=== PATIENT | male | born 1955 | race Hispanic/Latino ===

== ENCOUNTER 2024-09-15 06:18 | Observation (INO) | payer OTHER ==
[2024-09-13 12:29] LABS: BASOPHILS # (AUTO) 0.03 K/uL (0.00-0.20); BASOPHILS % (AUTO) 0.6 % (0.0-5.0); EOSINOPHILS # (AUTO) 0.09 K/uL (0.00-0.70); EOSINOPHILS % (AUTO) 1.7 % (0.0-8.0); HEMATOCRIT 41.7 % (42-54); IMMATURE GRANULOCYTE ABSOLUTE 0.01 K/uL (0-1); LYMPHOCYTES # (AUTO) 1.4 K/uL (1.0-4.8); LYMPHOCYTES % (AUTO) 26.4 % (21.0-51.0); MEAN CORPUSCULAR HEMOGLOBIN 30.2 pg (27.0-33.0); MEAN CORPUSCULAR HGB CONC 34.1 g/dL (32.0-36.0); MEAN CORPUSCULAR VOLUME 88.7 fL (79-99); MONOCYTES # (AUTO) 0.4 K/uL (0.1-1.0); MONOCYTES % (AUTO) 7.1 % (3.0-13.0); NEUTROPHILS # (AUTO) 3.3 K/uL (1.8-7.7); PLATELET COUNT (AUTO) 170 K/uL (130-400); RED CELL DISTRIBUTION WIDTH 13.2 % (11.0-15.5); WHITE BLOOD COUNT (AUTO) 5.2 K/uL (4.8-10.8)
[2024-09-13 12:40] VITALS: BP 142/76; PULSE 65; RESP 18; TEMP 97.7
[2024-09-13 12:44] LABS: INR 0.98 (0.85-1.15); PROTHROMBIN TIME 10.4 SEC (9.6-11.6)
[2024-09-13 12:45] LABS: CREATININE 0.9 mg/dL (0.5-1.3); PARTIAL THROMBOPLASTIN TIME 26.6 SEC (26.3-35.5); POTASSIUM 4.4 mmol/L (3.5-5.1)
--- NOTE | 2024-09-13 13:00 | NUR ---
IS INITIAL IS INITIAL TEACHING DONE BY RT SUZANNE DURING PRE-OP. PATIENT INSTRUCTED TO BRING ON DAY OF SURGERY.
--- NOTE | 2024-09-14 08:59 | EKG ---
[facility] Test Date: 2024-09-13 Test Time: 12:23:50 Pat Name: THOMAS GREEN Department: [facility] Room: [facility] Gender: M Rn Case Mgr: [id number] : 1955 Requested By: VIDYA CMCANN Order Number: [id number] Reading MD: Virgilio Brock Measurements Intervals [place] Rate: 64 P: 17 ND: 152 QRS: -4 QRSD: 74 T: 15 QT: 406 QTc: 418 Interpretive Statements Normal sinus rhythm No previous ECG available for comparison Electronically Signed On 09-15-2024 10:14:31 CDT by Virgilio Brock Please click the below link to view image of tracing.
--- NOTE | 2024-09-14 09:30 | NUR ---
EKG REPORTED TO DR. ACEVES. REVIEWED, OK TO PROCEED.
--- NOTE | 2024-09-14 17:26 | NUR ---
DISCHARGE PLANNING This CM called patient, but call was dropped. Then called , Merly Guajardo ph: [phone]. Per Merly, patient and are new to [place]. [facility] was recommended to them and they would like to proceed with referral. Telephone Consent for HOWIE/CL obtained from . Securely emailed face sheet to Key Arguello as a heads up of upcoming referral. Post-Operatively, CM to fax referral to [facility]. [facility] pending. Addendum: 09/14/24 at 1729 by LENNIE HAWKINS Amended: Links added.
[~2024-09-15] VITALS: Ht 170.2 cm; Wt 92.5 kg
[2024-09-15] VITALS (24 sets, daily range): BP systolic 106–145; BP diastolic 58–85; PULSE 62–76; RESP 13–20; TEMP 97.6–98.3; O2SAT 97
[~2024-09-15 06:18] MED LIST: HYDR-4060 PO
[2024-09-15] MEDS: LACTATED RINGERS 1000ML 1,000 ML IV ONE (06:43)
[2024-09-15] MEDS ORDERED: LIDOCAINE PF 100MG/5ML (2%) SYRINGE 5ML ONE (07:32)
[2024-09-15] MEDS ORDERED: phenylEPHRINE HCL 10 MG/ML 1ML VIAL IV ONE (07:32)
[2024-09-15] MEDS ORDERED: dexaMETHasone SOD PHOSPHATE 4 MG/ML 1ML VIAL ONE (07:32)
[2024-09-15] MEDS ORDERED: ondanSETRON 4MG INJ ONE (07:32)
[2024-09-15] MEDS ORDERED: MIDAZOLAM HCL 1 MG/ML 2ML VIAL ONE (07:33)
[2024-09-15] MEDS ORDERED: GLYCOPYRROLATE 0.2 MG/ML 5 ML VIAL ONE (07:33)
[2024-09-15] MEDS ORDERED: proPOFol 10 MG/ML 20ML VIAL IV ONE (07:33)
[2024-09-15] MEDS ORDERED: FENTanyl CITRate PF 50 MCG/1 ML 2ML VIAL ONE ×2 (07:34→10:38)
[2024-09-15] MEDS ORDERED: NEOSTIGMINE METHYLSULFATE 1MG/ML IV ONE (07:34)
[2024-09-15] MEDS ORDERED: rocuRONium bROMide 10MG/1ML 5ML VL ONE (07:34)
[2024-09-15] MEDS ORDERED: ROPivacaine 0.5% 5MG/ML 30ML ONE (07:37)
[2024-09-15] MEDS: ceFAZolin SODIUM 2 GM VIAL ONE (08:39)
[2024-09-15] MEDS: TRANEXAMIC ACID 1000MG/10ML ONE (09:01)
[2024-09-15] MEDS ORDERED: ondanSETRON 4MG INJ IVP PRN (09:30)
[2024-09-15] MEDS ORDERED: PoTASSium chloRIDE 20MEQ ER 20 MEQ ERTAB PO PRN (09:30)
[2024-09-15] MEDS: ketOROlac 15MG/ML VIAL (15MG/ML) IV SCH (09:30)
[2024-09-15] MEDS ORDERED: CALCIUM CARB 500MG PO PRN (09:30)
[2024-09-15] MEDS ORDERED: traMADol HCL 50 MG TABLET PO PRN (09:30)
[2024-09-15] MEDS ORDERED: PoTASSium chloRIDE 20MEQ/100ML 100 ML IV PRN (09:30)
[2024-09-15] MEDS ORDERED: PoTASSium chl 10% ELIXIR 20MEQ 20 MEQ/15 ML UDCUP PO PRN (09:30)
[2024-09-15] MEDS ORDERED: FERROUS FUMARATE 324 MG TABLET PO PRN (09:30)
[2024-09-15] MEDS ORDERED: HYDROcodone/APAP 5/325 1 TAB TABLET PO PRN (09:30)
[2024-09-15] MEDS: TRANEXAMIC ACID 1000MG/10ML IV ONE ×2 (10:30)
[2024-09-15] MEDS: FENTanyl CITRate PF 50 MCG/1 ML 2ML VIAL ONE (11:35)
[2024-09-15] MEDS: ketOROlac 15MG/ML VIAL (15MG/ML) ONE (11:46)
--- NOTE | 2024-09-15 12:16 | HMCIMG ---
HIP BILAT 2VW HISTORY: Status post hip surgery COMPARISON: None TECHNIQUE: 3 images of bilateral hips were obtained. FINDINGS: Total right hip replacement changes are seen. Left hip joint space narrowing is seen. There is no acute displaced fracture or dislocation. Degenerative changes are seen. IMPRESSION: 1. Findings as described above.
--- NOTE | 2024-09-15 12:31 | HMCIMG ---
HIP UNILAT 4VW RIGHT REASON: ORIF RIGHT PEDRO LUIS HIP SX,. COMPARISON: None TECHNIQUE: Fluoroscopic images were obtained. FINDINGS: Please see procedure report by referring physician. IMPRESSION: Intraoperative films.
[2024-09-15] MEDS: CYCLOBENZAPRINE HCL 10 MG TABLET PO PRN (12:32)
[2024-09-15] MEDS: HYDROcodone/APAP 5/325 1 TAB TABLET PO PRN (12:33)
[2024-09-15] MEDS: HYDROcodone/APAP 5/325 1 TAB TABLET ONE (12:40)
[2024-09-15] MEDS: CYCLOBENZAPRINE HCL 10 MG TABLET ONE (12:40)
--- NOTE | 2024-09-15 13:24 | DS ---
Discharge Summary Hospital Course Summary: The patient was admitted to the hospital postoperatively on 09/15/2024 after undergoing right total hip arthroplasty. They did well with routine postoperative pain control. They worked well with physical therapy. They developed some acute blood loss anemia but remained asymptomatic. The hospital course was otherwise uncomplicated. They were subsequently able to be discharged on postoperative day [] once discharge arrangements were made with [facility]. Demurrage Agent(s): None Procedure(s): Right total hip arthroplasty, 09/15/2024 Assessment/Plan: ASSESSMENT: Status post right total hip arthroplasty Acute blood loss anemia PLAN: See discharge instructions Discharge Instructions: Begin working with physical therapy at the facility. Remembered do not flex the hip more than 90 and do not cross midline at the knees or ankles for the 1st six weeks. If you are side sleeper place a pillow between the knees and ankles to prevent the legs from crossing. Dressing may be removed 09/17/24 and left open to air. Showers ok allowing soap and water to run over the wound. Pat dry. Do not submerge wound in tub/pool. Do not apply ointments. Do not apply Betadine. Do not apply peroxide. Ice packs to decrease pain/swelling. Prescriptions have been sent to the pharmacy: *Acton 5/325mg 1-2 tab every 6 hours as needed for severe pain. (please call for refills) Cyclobenzaprine 5mg 1 tab every 8 hours as needed for muscle spasm pain. Gabapentin 100mg 1 tab every 8 hours (may discontinue if drowsy). Colace 100mg 1 tab orally twice a day as needed for constipation. Aspirin 325mg for 30 days to prevent blood clots. Call for a follow-up appointment in 2-3 weeks at [facility]. Home Medications: Reported Medications Hydrocodone/Acetaminophen (Hydrocodon-Acetaminophen 5-325) 5 Mg-325 Mg Tablet, 1 TAB PO Q6HPRN PRN for pain for 5 Days, #10 TAB 0 Refills 09/13/24 VIDYA MCCANN MD Sep 15, 2024 13:24
[2024-09-15] MEDS: GABApentin 100 MG CAPSULE ONE (13:27)
[2024-09-15] MEDS: GABApentin 100 MG CAPSULE PO SCH (13:27)
--- NOTE | 2024-09-15 13:28 | OP ---
Operative Note: DATE OF PROCEDURE: 09/15/24 SURGEON: VIDYA MCCANN MD BRONZER: Demetrius Morales and Hailee Ornelas ANESTHESIA: General and fascia iliaca block ANESTHESIOLOGIST/HOSPITAL EDUCATOR: Noe Knott PREOPERATIVE DIAGNOSIS: Right hip avascular necrosis POSTOPERATIVE DIAGNOSIS: Right hip avascular necrosis PROCEDURE: Right total hip arthroplasty ESTIMATED BLOOD LOSS: 200 cc INDICATIONS: 69-year-old male with right hip osteoarthritis from right hip avascular necrosis failing conservative management. After discussion of the risks, benefits, and alternatives, the patient voluntarily agreed to undergo the aforementioned procedure. IMPLANTS: Noyola and Nephew 56 mm R3 acetabular component with 6.5 mm screws x2, +0/28/44/56 dual mobility liner insert and femoral head, size 9 standard offset anthology stem DESCRIPTION OF PROCEDURE: Patient was properly identified in the preoperative holding area. Surgical site marking was verified and surgery consent reviewed. The patient was then taken to the operating room and placed in supine position on the OR table. After induction of general anesthesia, preoperative antibiotics were given. The patient was then transitioned in the lateral decubitus position with the right side up. All bony prominences were well-padded. Right lower extremity was then prepped and draped in the usual sterile fashion. Surgical time out was done verifying correct surgery, side, site, and location to be performed. We then began the procedure by making approximately 15 cm long incision centered over the greater trochanter. Here we came sharply through skin down to the fascia. Hemostasis was then achieved using Bovie electrocautery. We then incised fascia in line with the skin incision and finger split the tensor muscle proximally. We then placed our Charnley retractor. At this point we identified the vastus ridge and began elevating the full-thickness soft tissue flap off of the vastus ridge, splitting the vastus lateralis and gluteus muscles as nec essary. We then proceeded to externally rotate the femur while making this flap. We resected part of the anterior capsule. The femoral head and neck was then delivered into view. We then dislocated the hip and performed a femoral neck osteotomy approximately half fingerbreadth proximal to the lesser trochanter. We then placed our retractors around the superior and anterior por tion of the acetabulum and began to remove the labrum circumferentially. We then began reaming the acetabulum where we reamed up to a size 55 ensuring appropriate anteversion and abduction. We then proceeded to trial with the size 55 acetabular component and this appeared to sit well. We opened our size 56 acetabular component and after irrigating out the wound malleted this into place. It appeared to have good press-fit however we elected to place two of the 6.5 mm screws as well. We drilled and filled the screws in standard fashion in the posterior superior portion of the cup. The wound was thoroughly irrigated out further and we placed the acetabular dual mobility liner and impacted this in place in standard fashion. We then proceeded to reposition our retractors to elevate the proximal femur out of the wound. We then used the box chisel and canal finder to began preparing the femoral side and sequentially broached up to the aforementioned size stem. Once we felt we had good fit, fill, and control of the femur with the stem in place we then used our trial head component and reduce the hip. Upon reduction, we had appropriate soft tissue tensioning, limb length and stable range of motion. We therefore dislocated the hip once more removed our trial components thoroughly irrigated the out the wound and placed our final components in standard fashion. The hip was then reduced with the final components in place. It was found to be stable through range of motion with appropriate soft tissue tensioning and appropriate limb length. At this point we placed a bump under the knee and the foot on the male with a stack of towels to allow for internal rotation. We repaired the abductors back to the greater trochanter using #5 Ethibond. We then repaired the rent in the vastus lateralis and gluteus muscles using #1 Vicryl in a running fashion. We removed our Charnley retractor and began to repair the IT band using #1 Vicryl in interrupted [id number] fashion. At this point we began to close her subcutaneous tissue using 2-0 Vicryl. Running 3-0 Monocryl in subcuticular fashion with Dermabond placed over this for the skin. Island barrier dressing was then applied. Patient was returned to supine position, awakened from anesthesia, and taken to the recovery room in stable condition. VIDYA MCCANN MD Sep 15, 2024 13:28
--- NOTE | 2024-09-15 13:30 | NUR ---
Educated patient to request pain meds with breakfast and dinner to allow plenty of time for PO meds to take effect for PT treatments. Patient voiced understanding. Educated patient on THR precautions with handout to be given once patient is assigned a room. Patient is requesting post-hospital rehab. PT team to follow. Addendum: 09/15/24 at 1511 by MUKUL NICK PT Amended: Links added.
--- NOTE | 2024-09-15 15:20 | NUR ---
REPORT PASSED TO ME BY SALVATORE REDMOND. PATIENT HAS ALREADY RECOVERED IN PACU BEFORE ARRIVAL ON THE UNIT. SCDS PLACED ON PATIENT. IV FLUIDS HOOKED UP AND ORIENTED PATIENT TO ROOM. I.S. ALREADY IN ROOM FOR PATIENT. CALLED RESPIRATORY TO RE-EDUCATE PATIENT ON USE.
--- NOTE | 2024-09-15 15:20 | NUR ---
Pt is received with report from recovery room. This patient is alert and in no distress. $ hours of post op vitals are completed in recovery room. SCDs are in place to both lower extremities. Pedal pulses are present bilaterally, pt is able to move both feet and sensation is intact. As per the recovery room report the patient has already ambulated with PT. The pt is oriented to the room ans the use of the call covarrubias. The call covarrubias is left in reach and the bed in a lopw position .
[2024-09-15] MEDS: 0.9%NACL 1000ML 1,000 ML IV SCH (15:34)
[2024-09-15] MEDS: CLINDAMYCIN IVPB 900MG/50ML 50 ML IV SCH (17:10)
[2024-09-15] MEDS: doCUSate SODIUM 100 MG CAP PO SCH (19:57)
[2024-09-16] VITALS: BP 113/74; PULSE 80; RESP 19; TEMP 97.8
[2024-09-16 04:00] VITALS: BP 121/71; PULSE 75; RESP 18; TEMP 97.6
[2024-09-16 04:37] LABS: MEAN CORPUSCULAR HEMOGLOBIN 30.6 pg (27.0-33.0); MEAN CORPUSCULAR HGB CONC 34.5 g/dL (32.0-36.0); MEAN CORPUSCULAR VOLUME 88.6 fL (79-99); RED BLOOD CELL COUNT(AUTO) 3.5 MIL/uL (4.50-6.20); RED CELL DISTRIBUTION WIDTH 13.2 % (11.0-15.5); WHITE BLOOD COUNT (AUTO) 9.3 K/uL (4.8-10.8)
[2024-09-16 04:53] LABS: CREATININE 0.8 mg/dL (0.5-1.3)
[2024-09-16] MEDS: HYDROcodone/APAP 5/325 1 TAB TABLET PO PRN (06:39)
[2024-09-16] MEDS: ASPIRIN 325MG EC TAB PO SCH (07:54)
[2024-09-16] MEDS: polyETHYLene GLYCol 3350 17 GM POWD.PACK PO SCH (07:54)
[2024-09-16 08:00] VITALS: BP 123/53; PULSE 76; RESP 19; TEMP 97.7; O2SAT 95
--- NOTE | 2024-09-16 08:02 | PN ---
Ortho postop day one. This morning the patient is awake alert and oriented he is seated in a chair at the bedside. Reporting adequate pain control. Vital signs have been stable. Afebrile. He is voiding on his own. He is passing gas. Laboratory results reviewed. Noted to have a drop in hemoglobin and hematocrit as expected after total hip arthroplasty patient is currently asymptomatic. Operative findings discussed with the patient. The dressing is intact. Ice is present to operative extremity. Gastrocnemius a soft nontender. Negative Homans. Bilateral SCD sleeves present. Ambulated with therapy yesterday and is pending further physical therapy. Anticipated discharge goal is skilled nurse facility. Assessment: Status post right total hip arthroplasty. Asymptomatic acute postoperative blood loss anemia. Plan: Continue with Dr. Molina's total hip arthroplasty protocol and discharge planning. Asymptomatic acute postoperative blood loss anemia addressed with the protocol as necessary. Vitals/Labs Vital Signs Date Time Temp Pulse Resp B/P (MAP) Pulse Ox O2 Delivery O2 Flow Rate FiO2 09/16/24 04:00 97.5 75 18 121/71 96 Room Air 09/15/24 20:00 2.0 09/15/24 20:00 21 Laboratory Tests 09/16/24 04:12 Medications Current Medications Cefazolin Sodium 2 gm STK-MED ONCE .ROUTE Last administered on 09/15/24at 08:39; Start 09/15/24 at 06:43; Stop 09/15/24 at 06:44; Status DC Lactated Ringer's 1,000 ml @ As Directed STK-MED ONCE IV; Start 09/15/24 at 06:43; Stop 09/15/24 at 06:44; Status DC Lidocaine HCl 100 mg STK-MED ONCE .ROUTE; Start 09/15/24 at 07:32; Stop 09/15/24 at 07:32; Status DC Dexamethasone Sodium Phosphate 4 mg STK-MED ONCE .ROUTE; Start 09/15/24 at 07:32; Stop 09/15/24 at 07:32; Status DC Phenylephrine HCl 10 mg STK-MED ONCE IV; Start 09/15/24 at 07:32; Stop 09/15/24 at 07:32; Status DC Ondansetron HCl 4 mg STK-MED ONCE .ROUTE; Start 09/15/24 at 07:32; Stop 09/15/24 at 07:32; Status DC Propofol 200 mg STK-MED ONCE IV; Start 09/15/24 at 07:33; Stop 09/15/24 at 07:34; Status DC Glycopyrrolate 1 mg STK-MED ONCE .ROUTE; Start 09/15/24 at 07:33; Stop 09/15/24 at 07:34; Status DC Midazolam HCl 2 mg STK-MED ONCE .ROUTE; Start 09/15/24 at 07:33; Stop 09/15/24 at 07:34; Status DC Neostigmine Methylsulfate 10 mg STK-MED ONCE IV; Start 09/15/24 at 07:34; Stop 09/15/24 at 07:34; Status DC Rocuronium [place] 50 mg STK-MED ONCE .ROUTE; Start 09/15/24 at 07:34; Stop 09/15/24 at 07:34; Status DC Fentanyl Citrate 100 mcg STK-MED ONCE .ROUTE; Start 09/15/24 at 07:34; Stop 09/15/24 at 07:34; Status DC Ropivacaine 150 mg STK-MED ONCE .ROUTE; Start 09/15/24 at 07:37; Stop 09/15/24 at 07:38; Status DC Tranexamic Acid 1,000 mg STK-MED ONCE .ROUTE Last administered on 09/15/24at 09:01; Start 09/15/24 at 08:44; Stop 09/15/24 at 08:45; Status DC Sodium Chloride 1,000 ml @ 100 mls/hr Q10H IV Last administered on 09/15/24at 17:13; Start 09/15/24 at 09:30; Stop 09/16/24 at 09:29 Polyethylene Glycol 17 gm DAILY PO Last administered on 09/16/24at 07:54; Start 09/16/24 at 09:00; Stop 10/16/24 at 08:59 Bisacodyl 10 mg DAILY PRN RC; Start 09/18/24 at 09:30; Stop 10/18/24 at 09:29 Ketorolac Tromethamine 15 mg Q6H PRN IV; Start 09/16/24 at 09:30; Stop 09/21/24 at 09:29 Ferrous Fumarate 324 mg DAILY PRN PO; Start 09/15/24 at 09:30; Stop 10/15/24 at 09:29 Calcium Carbonate 500 mg Q12H PRN PO; Start 09/15/24 at 09:30; Stop 10/15/24 at 09:29 Clindamycin HCl/ Dextrose 50 ml @ 50 mls/hr Q8H IV Last administered on 09/15/24at 22:21; Start 09/15/24 at 14:30; Stop 09/15/24 at 23:29; Status DC Ondansetron HCl 4 mg Q6H PRN IVP; Start 09/15/24 at 09:30; Stop 10/15/24 at 09:29 Gabapentin 100 mg TID PO Last administered on 09/16/24at 07:54; Start 09/15/24 at 14:00; Stop 10/15/24 at 13:59 Cyclobenzaprine HCl 5 mg Q8H PRN PO Last administered on 09/15/24at 12:32; Start 09/15/24 at 09:30; Stop 10/15/24 at 09:29 Docusate Sodium 100 mg BID PO Last administered on 09/16/24at 07:54; Start 09/15/24 at 21:00; Stop 10/15/24 at 20:59 Ketorolac Tromethamine 15 mg Q8H IV Last administered on 09/16/24at 01:59; Start 09/15/24 at 09:30; Stop 09/16/24 at 01:31; Status DC Aspirin 325 mg DAILY PO Last administered on 09/16/24at 07:54; Start 09/16/24 at 09:00; Stop 10/16/24 at 08:59 Potassium Chloride 100 ml @ 100 mls/hr AD PRN IV; Start 09/15/24 at 09:30; Stop 10/15/24 at 09:29 Potassium Chloride 20 meq AD PRN PO; Start 09/15/24 at 09:30; Stop 10/15/24 at 09:29 Potassium Chloride 20 meq AD PRN PO; Start 09/15/24 at 09:30; Stop 10/15/24 at 09:29 Tramadol HCl 50 mg Q6H PRN PO; Start 09/15/24 at 09:30; Stop 09/20/24 at 09:29 Acetaminophen/ Hydrocodone Bitart Q4H PRN PO; Start 09/15/24 at 09:30; Stop 09/15/24 at 09:41; Status DC Acetaminophen/ Hydrocodone Bitart 1 tab Q6H PRN PO Last administered on 09/15/24at 12:33; Start 09/15/24 at 10:00; Stop 09/20/24 at 09:59 Acetaminophen/ Hydrocodone Bitart 2 tab Q6H PRN PO Last administered on 09/16/24at 06:39; Start 09/15/24 at 10:00; Stop 09/20/24 at 09:59 Tranexamic Acid 1,000 mg STK-MED ONCE IV; Start 09/15/24 at 00:00; Stop 09/15/24 at 00:01; Status Cancel Tranexamic Acid 1,000 mg STK-MED ONCE IV Last administered on 09/15/24at 10:30; Start 09/15/24 at 10:30; Stop 09/15/24 at 10:30; Status DC Fentanyl Citrate 100 mcg STK-MED ONCE .ROUTE; Start 09/15/24 at 10:38; Stop 09/15/24 at 10:38; Status DC Fentanyl Citrate 100 mcg STK-MED ONCE .ROUTE Last administered on 09/15/24at 11:35; Start 09/15/24 at 11:30; Stop 09/15/24 at 11:30; Status DC Ketorolac Tromethamine 15 mg STK-MED ONCE .ROUTE Last administered on 09/15/24at 11:46; Start 09/15/24 at 11:42; Stop 09/15/24 at 11:43; Status DC Acetaminophen/ Hydrocodone Bitart 1 tab STK-MED ONCE .ROUTE; Start 09/15/24 at 12:28; Stop 09/15/24 at 12:29; Status DC Cyclobenzaprine HCl 10 mg STK-MED ONCE .ROUTE; Start 09/15/24 at 12:28; Stop 09/15/24 at 12:29; Status DC Gabapentin 100 mg STK-MED ONCE .ROUTE; Start 09/15/24 at 13:25; Stop 09/15/24 at 13:25; Status DC KAI ADAIR NP Sep 16, 2024 08:02
[2024-09-16] MEDS: ketOROlac 15MG/ML VIAL (15MG/ML) IV PRN (09:09)
--- NOTE | 2024-09-16 11:51 | NUR ---
[facility] CM MET WITH PT THIS MORNING, INITIAL ASSESSMENT DONE. PATIENT IS INDEPENDENT PRIOR TO SURGERY, LIVES AT HOME WITH HIS AND 2 ADULT SONS. PATIENT HAS A CANE, WALKER, SHOWER CHAIR. DENIES ANY OTHER EQUIPMENT/SERVICES. PREVIOUS CM ASSIGNED OBTAINED CONSENT [facility]IE FOR [facility] YESTERDAY EVENING AND PACKET WAS SENT. CM SPOKE TO RADHA VERIFIED RECEIVED REFERRAL AND CURRENTLY WORKING ON AUTH. PER RADHA W/[facility], DC [employer] SERVICE INSTRUCTOR SENT [facility]. PT PENDING AUTH AT THIS TIME. [facility] SNF ONCE APPROVED. CM TO CONTINUE TO FOLLOW UP. Addendum: 09/16/24 at 1154 by NARENDRA FRASER LVN Amended: Links added.
[2024-09-16 12:00] VITALS: BP 123/59; PULSE 69; RESP 19; TEMP 97.7
[2024-09-16 16:00] VITALS: BP 137/71; PULSE 60; RESP 19; TEMP 97.6
[2024-09-16 20:00] VITALS: BP 120/68; PULSE 96; RESP 20; TEMP 98
[2024-09-17] VITALS: BP 150/73; PULSE 86; RESP 19; TEMP 98.9
[2024-09-17 07:50] VITALS: O2SAT 93
[2024-09-17 08:00] VITALS: BP 127/71; PULSE 87; RESP 19; TEMP 98.1
[2024-09-17] MEDS ORDERED: HYDR-4060 PO (09:05)
[2024-09-17] MEDS ORDERED: GABA100C PO (09:05)
[2024-09-17] MEDS ORDERED: ASPI-891 PO (09:05)
[2024-09-17] MEDS ORDERED: CYCL-309 PO (09:05)
[2024-09-17] MEDS ORDERED: DOCU-116 PO (09:05)
--- NOTE | 2024-09-17 09:09 | PN ---
Ortho postop day two The patient reports that he is doing well. States he was able to shower this morning. Does report some pain that this is controlled. States that numbness in his thigh is resolving. Voiding on his own. Vital signs stable, afebrile No acute distress, alert and oriented x3 Nonlabored breathing Right lower extremity -bandage removed -incision clean dry and intact -distally neurovascularly intact -mild edema distally, large varicosities -calf soft nontender Ambulating 40 ft with physical therapy Discharge planning is for [facility] Postop day two status post right total hip arthroplasty Acute blood loss anemia -continue with my routine postoperative protocol -stable for discharge to [facility] once approval obtained. Vitals/Labs Vital Signs Date Time Temp Pulse Resp B/P (MAP) Pulse Ox O2 Delivery O2 Flow Rate FiO2 09/17/24 08:00 98.1 87 19 127/71 93 Room Air 09/16/24 20:00 0 21 Medications Current Medications Cefazolin Sodium 2 gm STK-MED ONCE .ROUTE Last administered on 09/15/24at 08:39; Start 09/15/24 at 06:43; Stop 09/15/24 at 06:44; Status DC Lactated Ringer's 1,000 ml @ As Directed STK-MED ONCE IV; Start 09/15/24 at 06:43; Stop 09/15/24 at 06:44; Status DC Lidocaine HCl 100 mg STK-MED ONCE .ROUTE; Start 09/15/24 at 07:32; Stop 09/15/24 at 07:32; Status DC Dexamethasone Sodium Phosphate 4 mg STK-MED ONCE .ROUTE; Start 09/15/24 at 07:32; Stop 09/15/24 at 07:32; Status DC Phenylephrine HCl 10 mg STK-MED ONCE IV; Start 09/15/24 at 07:32; Stop 09/15/24 at 07:32; Status DC Ondansetron HCl 4 mg STK-MED ONCE .ROUTE; Start 09/15/24 at 07:32; Stop 09/15/24 at 07:32; Status DC Propofol 200 mg STK-MED ONCE IV; Start 09/15/24 at 07:33; Stop 09/15/24 at 07:34; Status DC Glycopyrrolate 1 mg STK-MED ONCE .ROUTE; Start 09/15/24 at 07:33; Stop 09/15/24 at 07:34; Status DC Midazolam HCl 2 mg STK-MED ONCE .ROUTE; Start 09/15/24 at 07:33; Stop 09/15/24 at 07:34; Status DC Neostigmine Methylsulfate 10 mg STK-MED ONCE IV; Start 09/15/24 at 07:34; Stop 09/15/24 at 07:34; Status DC Rocuronium [place] 50 mg STK-MED ONCE .ROUTE; Start 09/15/24 at 07:34; Stop 09/15/24 at 07:34; Status DC Fentanyl Citrate 100 mcg STK-MED ONCE .ROUTE; Start 09/15/24 at 07:34; Stop 09/15/24 at 07:34; Status DC Ropivacaine 150 mg STK-MED ONCE .ROUTE; Start 09/15/24 at 07:37; Stop 09/15/24 at 07:38; Status DC Tranexamic Acid 1,000 mg STK-MED ONCE .ROUTE Last administered on 09/15/24at 09:01; Start 09/15/24 at 08:44; Stop 09/15/24 at 08:45; Status DC Sodium Chloride 1,000 ml @ 100 mls/hr Q10H IV Last administered on 09/15/24at 17:13; Start 09/15/24 at 09:30; Stop 09/16/24 at 09:29; Status DC Polyethylene Glycol 17 gm DAILY PO Last administered on 09/17/24at 07:50; Start 09/16/24 at 09:00; Stop 10/16/24 at 08:59 Bisacodyl 10 mg DAILY PRN RC; Start 09/18/24 at 09:30; Stop 10/18/24 at 09:29 Ketorolac Tromethamine 15 mg Q6H PRN IV Last administered on 09/16/24at 14:57; Start 09/16/24 at 09:30; Stop 09/21/24 at 09:29 Ferrous Fumarate 324 mg DAILY PRN PO; Start 09/15/24 at 09:30; Stop 10/15/24 at 09:29 Calcium Carbonate 500 mg Q12H PRN PO; Start 09/15/24 at 09:30; Stop 10/15/24 at 09:29 Clindamycin HCl/ Dextrose 50 ml @ 50 mls/hr Q8H IV Last administered on 09/15/24at 22:21; Start 09/15/24 at 14:30; Stop 09/15/24 at 23:29; Status DC Ondansetron HCl 4 mg Q6H PRN IVP; Start 09/15/24 at 09:30; Stop 10/15/24 at 09:29 Gabapentin 100 mg TID PO Last administered on 09/17/24at 07:50; Start 09/15/24 at 14:00; Stop 10/15/24 at 13:59 Cyclobenzaprine HCl 5 mg Q8H PRN PO Last administered on 09/15/24at 12:32; Start 09/15/24 at 09:30; Stop 10/15/24 at 09:29 Docusate Sodium 100 mg BID PO Last administered on 09/17/24at 07:50; Start 09/15/24 at 21:00; Stop 10/15/24 at 20:59 Ketorolac Tromethamine 15 mg Q8H IV Last administered on 09/16/24at 01:59; Start 09/15/24 at 09:30; Stop 09/16/24 at 01:31; Status DC Aspirin 325 mg DAILY PO Last administered on 09/17/24at 07:50; Start 09/16/24 at 09:00; Stop 10/16/24 at 08:59 Potassium Chloride 100 ml @ 100 mls/hr AD PRN IV; Start 09/15/24 at 09:30; Stop 10/15/24 at 09:29 Potassium Chloride 20 meq AD PRN PO; Start 09/15/24 at 09:30; Stop 10/15/24 at 09:29 Potassium Chloride 20 meq AD PRN PO; Start 09/15/24 at 09:30; Stop 10/15/24 at 09:29 Tramadol HCl 50 mg Q6H PRN PO; Start 09/15/24 at 09:30; Stop 09/20/24 at 09:29 Acetaminophen/ Hydrocodone Bitart Q4H PRN PO; Start 09/15/24 at 09:30; Stop 09/15/24 at 09:41; Status DC Acetaminophen/ Hydrocodone Bitart 1 tab Q6H PRN PO Last administered on 09/15/24at 12:33; Start 09/15/24 at 10:00; Stop 09/20/24 at 09:59 Acetaminophen/ Hydrocodone Bitart 2 tab Q6H PRN PO Last administered on 09/17/24at 06:37; Start 09/15/24 at 10:00; Stop 09/20/24 at 09:59 Tranexamic Acid 1,000 mg STK-MED ONCE IV; Start 09/15/24 at 00:00; Stop 09/15/24 at 00:01; Status Cancel Tranexamic Acid 1,000 mg STK-MED ONCE IV Last administered on 09/15/24at 10:30; Start 09/15/24 at 10:30; Stop 09/15/24 at 10:30; Status DC Fentanyl Citrate 100 mcg STK-MED ONCE .ROUTE; Start 09/15/24 at 10:38; Stop 09/15/24 at 10:38; Status DC Fentanyl Citrate 100 mcg STK-MED ONCE .ROUTE Last administered on 09/15/24at 11:35; Start 09/15/24 at 11:30; Stop 09/15/24 at 11:30; Status DC Ketorolac Tromethamine 15 mg STK-MED ONCE .ROUTE Last administered on 09/15/24at 11:46; Start 09/15/24 at 11:42; Stop 09/15/24 at 11:43; Status DC Acetaminophen/ Hydrocodone Bitart 1 tab STK-MED ONCE .ROUTE; Start 09/15/24 at 12:28; Stop 09/15/24 at 12:29; Status DC Cyclobenzaprine HCl 10 mg STK-MED ONCE .ROUTE; Start 09/15/24 at 12:28; Stop 09/15/24 at 12:29; Status DC Gabapentin 100 mg STK-MED ONCE .ROUTE; Start 09/15/24 at 13:25; Stop 09/15/24 at 13:25; Status DC VIDYA MCCANN MD Sep 17, 2024 09:09
[2024-09-17 12:05] VITALS: BP 129/76; PULSE 88; RESP 19; TEMP 98
--- NOTE | 2024-09-17 14:02 | NUR ---
PATIENT REPORT CALLED REPORT TO [facility] Mcfarlane/Jolynn SALINAS RN. PATIENT GOING TO ROOM 703.
--- NOTE | 2024-09-17 14:03 | NUR ---
PATIENT DISCHARGE PATIENT DISCHARGED TO [facility]. PATIENT AWARE TO F/U WITH DR. MCCANN 09/28. PRESCRIPTIONS SENT TO FACILITY. PERIPHERAL IV DISCHARGED. ALL QUESTIONS ANSWERED. FACILITY TRANSPORTER ON UNIT TO TRANSPORT PATIENT.
[2024-09-18] MEDS ORDERED: BisaCODYL 10 MG SUPP.RECT RC PRN (09:30)
== END 2024-09-17 14:10 ==
LOC: DAH 06:18 → DAHIP 06:19 → 4BH 15:20
PROVIDERS: ADMIT Student in an Organized Health Care Education/Training Program; ATTEND Student in an Organized Health Care Education/Training Program
DX: M16.11 Unilateral primary osteoarthritis, right hip (principal); G89.18 Other acute postprocedural pain; M87.051 Idiopathic aseptic necrosis of right femur; D62 Acute posthemorrhagic anemia; Z79.899 Other long term (current) drug therapy
CPT/HCPCS: 82040; 80048 ×2; 85025; 85610; 85730; 84134; 86140; 36415 ×2; 93005; 87641; 27130; 96376 ×2; 96365; 96366; 96375; 64447; 73503; 73521; 97161; 97116 ×5; 85027; 97530 ×3; J1100; G0378 ×53; A4223 ×2; A4663; J7120; J3010 ×3; J3490 ×6; J2003; J2250; J2704; J2405; J2710; J2795; J1885 ×5; J2371; J0690; A4649 ×2; A4930 ×2; A6255; A5120; A4215; A4213; A4222; A4221; A4216; C1776